=== PATIENT | male | born 1980 | race Caucasian/White ===

== ENCOUNTER 2021-07-31 22:10 | Inpatient (IN) | payer SELFPAY ==
--- NOTE | 2021-07-31 | ECG_ITS ---
Test Reason : HYPERTENSION Blood Pressure : / mmHG Vent. Rate : 085 BPM Atrial Rate : 085 BPM P-R Int : 122 ms QRS Dur : 098 ms QT Int : 396 ms P-R-T Axes : 060 064 066 degrees QTc Int : 471 ms Normal sinus rhythm Incomplete right bundle branch block Moderate voltage criteria for LVH, may be normal variant ( Sokolow-Liao , [place] product ) Borderline ECG No previous ECGs available Referred By: Generic ED Physician Electronically Signed By:Jimenez Blanchard
--- NOTE | ~2021-07-31 | CT_ITS ---
EXAMINATION: CT OF THE RIGHT FOREARM WITH CONTRAST CT OF THE RIGHT HAND WITH CONTRAST CLINICAL INFORMATION: Osteomyelitis . Tenosynovitis. COMPARISON: Radiographs dated 07/28/2017. TECHNIQUE: Multidetector volumetric imaging was obtained through the right forearm into the right hand following intravenous administration of 85 cc Omnipaque 350. Multiplanar reformatted images in coronal and sagittal orientations were submitted. This CT examination was performed using dose optimization techniques as appropriate, variously including the following: *Automated exposure control *Adjustment of mA and/or kV according to patient size (this includes techniques or standardized protocols for targeted exams where dose is matched to indication/reason for exam; i.e. extremities or head) *Use of iterative reconstruction technique DLP: 358 mGy-cm FINDINGS: Forearm: Soft tissue swelling and subcutaneous edema are most notable in the wrist extending into the hand. There is more mild soft tissue edema in the forearm. No focal peripherally enhancing fluid collections are identified in the forearm. Musculature is normal in appearance. No visual fascial collections or subcutaneous gas. No acute osseous findings in the forearm. Old nonunited right ulnar styloid fracture. Small osteophytes of the elbow joint. No elbow joint effusion. No CT findings of osteomyelitis in the forearm. Right hand: There is soft tissue swelling and subcutaneous edema in the right hand, most pronounced at the dorsal/lateral aspect of the hand near the base of the first metacarpal at the CMC joint. There is a subtle, peripherally enhancing focus in this region measuring 1.4 x 0.6 x 1.7 cm which is most concerning for an abscess. No additional fluid collections are identified. No appreciable tenosynovitis. Tendons are grossly intact. Intrinsic hand musculature is unremarkable. No acute osseous findings. Old nonunited ulnar styloid fracture is again noted. No CT findings of acute osteomyelitis. Joints appear well-preserved. CT/CT forearm RT w con IMPRESSION: Marked soft tissue swelling and subcutaneous edema in the wrist and hand, most pronounced dorsolaterally at the level of the first metacarpal base. There is a small 1.4 x 0.6 x 1.7 cm abscess/phlegmon is fat in this region. No evidence of tenosynovitis or osteomyelitis in the hand and forearm.
[2021-07-31 22:13] VITALS: BP 185/118; PULSE 92; RESP 18; TEMP 37.3; O2SAT 96; BMI 23.1
[2021-07-31 22:32] LABS: MANUAL DIFF FLAG NO
[2021-07-31 22:33] LABS: Basophils Absolute Auto 0.1 X10*3/uL (0.0-0.2); Basophils Percent Auto 0.5 % (0-2); Eosinophils Absolute Auto 0.3 X10*3/uL (0.0-0.4); Eosinophils Percent Auto 3.2 % (0-4); Hematocrit 39.4 % (42.0-52.0); Hemoglobin 12.6 g/dl (14.0-18.0); Imm Gran Abs Auto 0.02 X10*3/uL (0.00-0.03); Imm Gran Pct Auto 0.2 % (0.0-0.4); Lymphocytes Absolute Auto 1.6 X10*3/uL (1.2-4.9); Mean Corpuscular Hemoglobin 28.8 pg (27.0-33.0); Mean Platelet Volume 9.1 fL (9.4-12.4); Monocytes Absolute Auto 0.5 X10*3/uL (0.1-1.2); Monocytes Percent Auto 5.5 % (2-11); Neutrophils Absolute Auto 7.4 x10*3/uL (2.0-8.3); Neutrophils Percent Auto 74.6 % (45-73); Platelet Count 201 X10*3/uL (160-400); Red Blood Count 4.38 X10*6/uL (4.60-5.80); White Blood Count 9.9 X10*3/uL (4.8-10.8)
--- NOTE | 2021-07-31 22:50 | ED.WOUNDLAC ---
HPI - Wound/Laceration General Chief Complaint: Wound/Laceration Stated Complaint: spider bite rt hand, swollen Time Seen by Provider: 07/31/21 22:29 Source: patient Mode of arrival: ambulatory Limitations: no limitations History of Present Illness HPI narrative: 41-year-old male presents with right hand pain and swelling. Feels that he has a spider bite. Onset (ago): hour(s) (4) Extremity Location: right: hand Place: home Patient tetanus UTD: No Associated symptoms: pain Related Data Allergies Allergy/AdvReac Type Severity Reaction Status Date / Time No Known Allergies Allergy Verified 07/31/21 22:13 Review of Systems Review of Systems: Constitutional: No Fever, No Chills ENT/Mouth: No Ear Pain, No Hoarseness, No sore throat Eyes: No Eye Pain, No Swelling, No Redness, No Foreign Body Cardiovascular: No Chest Pain, No SOB Respiratory: No Cough, No Dyspnea Gastrointestinal: No Nausea, No Vomiting, No Diarrhea, No abdominal Pain Genitourinary: No Dysuria, No Hematuria Musculoskeletal: positive right hand pain, No Myalgias, positive right hand Swelling Skin: Positive right hand erythema, purulent drainage, No Skin lacerations, No rash Neuro: No Weakness, No Numbness, No Paresthesias, No Loss of Consciousness, No Dizziness, No Headache Psych: No Anxiety/Panic, No Depression Heme/Lymph: no easy bruising, no Lymphadenopathy Endocrine: No Polyuria, No Polydipsia PMFSH Past Medical History Attestation statement: The following information was validated with the patient. Source: old records reviewed Social History Social History Advance Directives: No Advance Directives Information Provided: No Physical Exam Vital Signs: Vital Signs: Last Vital Signs Temp 99.1 F 08/01/21 01:56 Pulse 66 08/01/21 01:56 Resp 14 08/01/21 01:56 BP 181/102 H 08/01/21 01:56 Pulse Ox 96 08/01/21 01:56 BMI result Body Mass Index 23.1 Appearance: Alert. Oriented X3. Moderate distress. Eyes: Pupils equal, round and reactive to light. ENT: Pharynx normal. Neck: Normal inspection. Neck supple. CVS: Normal heart rate and rhythm. Pulses normal. Respiratory: No respiratory distress. Breath sounds normal. Abdomen: Soft and nontender. Skin: Cellulitis to right hand. Skin warm and dry. Normal skin color. Normal skin turgor. Extremities: No lower extremity edema. Edema noted to the right upper extremity. Decreased range of motion secondary to swelling. Brisk capillary refill in equal pulses. Neuro: No motor deficit. No sensory deficit. Cranial nerves 2-12 intact Course Course Course Narrative: 41-year-old male presents with 4 hours of right hand pain, swelling, and purulent drainage. Patient is unable to bend his fingers. 23:02 based on the rapid progression of his swelling and erythema, will treat with Zosyn to cover for necrotizing fasciitis, vanco per ED protocol, fluid resuscitation at 2 L per ideal body weight. Patient is tall with thin build. Order for CT of hand and forearm to rule out osteomyelitis and tenosynovitis. Lactic and cultures are pending even though vital signs are stable and within normal limits. 00:52 CT scan indicates cellulitis with phlegmon abscess. No indication of osteo or tenosynovitis at this time. Plan of care is for admission. Discussion with hospitalist, plan is to admit for cellulitis. Consultations Consultation #1: Naye Time: 00:00 MDM - Wound/Laceration MDM Narrative Medical decision making narrative: Cellulitis, tenosynovitis, osteomyelitis Differential Diagnosis Differential diagnosis: Likely abscess Medical Records Attestation: I reviewed the patient's medical records. Lab Data Attestation: I reviewed the patient's lab results. Result diagrams: 07/31/21 22:27 07/31/21 22:27 Labs: Lab Results 07/31/21 07/31/21 07/31/21 Range/Units 22:27 22:27 23:06 WBC 9.9 (4.8-10.8) X10*3/uL RBC 4.38 L (4.60-5.80) X10*6/uL Hgb 12.6 L (14.0-18.0) g/dl Hct 39.4 L (42.0-52.0) % MCV 90.0 (80.0-98.0) fL MCH 28.8 (27.0-33.0) pg MCHC 32.0 (31.0-36.0) g/dl RDW 13.0 (11.0-16.0) % Plt Count 201 (160-400) X10*3/uL MPV 9.1 L (9.4-12.4) fL Immature Gran % (Auto) 0.2 (0.0-0.4) % Neut % (Auto) 74.6 H (45-73) % Lymph % (Auto) 16.0 L (20-40) % [place] % (Auto) 5.5 (2-11) % Eos % (Auto) 3.2 (0-4) % Baso % (Auto) 0.5 (0-2) % Lymph # (Auto) 1.6 (1.2-4.9) X10*3/uL [place] # (Auto) 0.5 (0.1-1.2) X10*3/uL Eos # (Auto) 0.3 (0.0-0.4) X10*3/uL Baso # (Auto) 0.1 (0.0-0.2) X10*3/uL Abs Immat Gran (auto) 0.02 (0.00-0.03) X10*3/uL Absolute Neuts (auto) 7.4 (2.0-8.3) x10*3/uL Absolute Nucleated RBC 0.000 (0.0-0.012) X10*3/uL Nucleated RBC % (auto) 0.0 (0.0-0.2) /100WBC ESR (0-15) MM/HR Sodium 141 (135-145) mmol/L Potassium 3.7 (3.3-5.1) mmol/L Chloride 105 (96-108) mmol/L Carbon Dioxide 30 H (22-29) mmol/L Anion Gap 10 L (12-20) BUN 23 H (9-16) mg/dL Creatinine 1.33 (0.5-1.4) mg/dL Estim Creat Clear Calc 88.5 Estimated GFR 60 Random Glucose 91 (60-115) mg/dL Lactic Acid 1.2 (0.5-2.0) mmol/L Calcium 9.1 (8.4-10.2) mg/dL Troponin I High Sens (<3.5-35.0) ng/L C-Reactive Protein (< or = 0.50) mg/dL COVID-19 (JANIA) (Negative) COVID-19 Clin Com 07/31/21 07/31/21 07/31/21 Range/Units 23:07 23:07 23:07 WBC (4.8-10.8) X10*3/uL RBC (4.60-5.80) X10*6/uL Hgb (14.0-18.0) g/dl Hct (42.0-52.0) % MCV (80.0-98.0) fL MCH (27.0-33.0) pg MCHC (31.0-36.0) g/dl RDW (11.0-16.0) % Plt Count (160-400) X10*3/uL MPV (9.4-12.4) fL Immature Gran % (Auto) (0.0-0.4) % Neut % (Auto) (45-73) % Lymph % (Auto) (20-40) % [place] % (Auto) (2-11) % Eos % (Auto) (0-4) % Baso % (Auto) (0-2) % Lymph # (Auto) (1.2-4.9) X10*3/uL [place] # (Auto) (0.1-1.2) X10*3/uL Eos # (Auto) (0.0-0.4) X10*3/uL Baso # (Auto) (0.0-0.2) X10*3/uL Abs Immat Gran (auto) (0.00-0.03) X10*3/uL Absolute Neuts (auto) (2.0-8.3) x10*3/uL Absolute Nucleated RBC (0.0-0.012) X10*3/uL Nucleated RBC % (auto) (0.0-0.2) /100WBC ESR 12 (0-15) MM/HR Sodium (135-145) mmol/L Potassium (3.3-5.1) mmol/L Chloride (96-108) mmol/L Carbon Dioxide (22-29) mmol/L Anion Gap (12-20) BUN (9-16) mg/dL Creatinine (0.5-1.4) mg/dL Estim Creat Clear Calc Estimated GFR Random Glucose (60-115) mg/dL Lactic Acid (0.5-2.0) mmol/L Calcium (8.4-10.2) mg/dL Troponin I High Sens 12.6 (<3.5-35.0) ng/L C-Reactive Protein 0.41 (< or = 0.50) mg/dL COVID-19 (JANIA) (Negative) COVID-19 Clin Com 07/31/21 Range/Units 23:08 WBC (4.8-10.8) X10*3/uL RBC (4.60-5.80) X10*6/uL Hgb (14.0-18.0) g/dl Hct (42.0-52.0) % MCV (80.0-98.0) fL MCH (27.0-33.0) pg MCHC (31.0-36.0) g/dl RDW (11.0-16.0) % Plt Count (160-400) X10*3/uL MPV (9.4-12.4) fL Immature Gran % (Auto) (0.0-0.4) % Neut % (Auto) (45-73) % Lymph % (Auto) (20-40) % [place] % (Auto) (2-11) % Eos % (Auto) (0-4) % Baso % (Auto) (0-2) % Lymph # (Auto) (1.2-4.9) X10*3/uL [place] # (Auto) (0.1-1.2) X10*3/uL Eos # (Auto) (0.0-0.4) X10*3/uL Baso # (Auto) (0.0-0.2) X10*3/uL Abs Immat Gran (auto) (0.00-0.03) X10*3/uL Absolute Neuts (auto) (2.0-8.3) x10*3/uL Absolute Nucleated RBC (0.0-0.012) X10*3/uL Nucleated RBC % (auto) (0.0-0.2) /100WBC ESR (0-15) MM/HR Sodium (135-145) mmol/L Potassium (3.3-5.1) mmol/L Chloride (96-108) mmol/L Carbon Dioxide (22-29) mmol/L Anion Gap (12-20) BUN (9-16) mg/dL Creatinine (0.5-1.4) mg/dL Estim Creat Clear Calc Estimated GFR Random Glucose (60-115) mg/dL Lactic Acid (0.5-2.0) mmol/L Calcium (8.4-10.2) mg/dL Troponin I High Sens (<3.5-35.0) ng/L C-Reactive Protein (< or = 0.50) mg/dL COVID-19 (JANIA) Negative (Negative) COVID-19 Clin Com See Note Imaging Data CT scan hand and forearm: Attestation: I personally reviewed and interpreted this imaging study as follows: Radiologist's impression: EXAMINATION: CT OF THE RIGHT FOREARM WITH CONTRAST CT OF THE RIGHT HAND WITH CONTRAST CLINICAL INFORMATION: Osteomyelitis . Tenosynovitis.? COMPARISON: Radiographs dated 07/28/2017.? TECHNIQUE: Multidetector volumetric imaging was obtained through the right forearm into the right hand following intravenous administration of 85 cc Omnipaque 350. Multiplanar reformatted images in coronal and sagittal orientations were submitted.? This CT examination was performed using dose optimization techniques as appropriate, variously including the following: *Automated exposure control *Adjustment of mA and/or kV according to patient size (this includes techniques or standardized protocols for targeted exams where dose is matched to indication/reason for exam; i.e. extremities or head) *Use of iterative reconstruction technique DLP: 358 mGy-cm FINDINGS: Forearm: Soft tissue swelling and subcutaneous edema are most notable in the wrist extending into the hand. There is more mild soft tissue edema in the forearm. No focal peripherally enhancing fluid collections are identified in the forearm. Musculature is normal in appearance. No visual fascial collections or subcutaneous gas. No acute osseous findings in the forearm. Old nonunited right ulnar styloid fracture. Small osteophytes of the elbow joint. No elbow joint effusion. No CT findings of osteomyelitis in the forearm. Right hand: There is soft tissue swelling and subcutaneous edema in the right hand, most pronounced at the dorsal/lateral aspect of the hand near the base of the first metacarpal at the CMC joint. There is a subtle, peripherally enhancing focus in this region measuring 1.4 x 0.6 x 1.7 cm which is most concerning for an abscess. No additional fluid collections are identified. No appreciable tenosynovitis. Tendons are grossly intact. Intrinsic hand musculature is unremarkable. No acute osseous findings. Old nonunited ulnar styloid fracture is again noted. No CT findings of acute osteomyelitis. Joints appear well-preserved. CT/CT hand RT w con IMPRESSION: Marked soft tissue swelling and subcutaneous edema in the wrist and hand, most pronounced dorsolaterally at the level of the first metacarpal base. There is a small 1.4 x 0.6 x 1.7 cm abscess/phlegmon is fat in this region. No evidence of tenosynovitis or osteomyelitis in the hand and forearm. ECG Data Attestation: I personally reviewed and interpreted this ECG as follows: ECG interpretation date: 07/31/21 ECG interpretation time: 22:16 Prior ECG tracings: not available for review Interpretation: Vent. rate 85 BPM TN interval 122 ms QRS duration 98 ms QT/QTc 396/471 ms P-R-T axes 60 64 66 Normal sinus rhythm Incomplete right bundle branch block Moderate voltage criteria for LVH, may be normal variant ( Sokolow-Liao , [place] product ) Borderline ECG No previous ECGs available Discharge Plan Discharge Clinical Impression: Cellulitis, Phlegmon Patient Disposition: Admitted As Inpatient
[2021-07-31 22:51] LABS: Anion Gap 10 (12-20); Blood Urea Nitrogen 23 mg/dL (9-16); Calcium 9.1 mg/dL (8.4-10.2); Carbon Dioxide 30 mmol/L (22-29); Chloride 105 mmol/L (96-108); Creatinine Clr Calc Pharmacy 88.5; Estimated Glomerular Filt Rate 60; Glucose Random 91 mg/dL (60-115); Potassium 3.7 mmol/L (3.3-5.1); Sodium 141 mmol/L (135-145)
[2021-07-31 23:14] VITALS: RESP 16
[2021-07-31] MEDS: Morphine Sulfate 4 MG/ML CARTRIDGE IVPUSH (23:14)
[2021-07-31] MEDS: Diphth,Pertus(ACell),Tet Adult 0.5 ML SYRINGE IM (23:20)
[2021-07-31 23:28] LABS: Lactic Acid 1.2 mmol/L (0.5-2.0)
[2021-07-31 23:28] LABS: COVID-19 Test Negative (Negative)
[2021-07-31 23:36] LABS: C Reactive Protein 0.41 mg/dL (< or = 0.50)
[2021-07-31 23:37] LABS: Troponin-I High Sensitivity 12.6 ng/L (<3.5-35.0)
[2021-07-31] MEDS: 0.9 % Sodium Chloride 1,000 ML 999 ML IVCONT (23:50)
[2021-08-01] VITALS (10 sets, daily range): BP systolic 163–199; BP diastolic 83–113; PULSE 64–90; RESP 14–18; TEMP 36.6–37.9; O2SAT 94–99; BMI 21.9
[2021-08-01] LABS: Erythrocyte Sedimentation Rate 12 MM/HR (0-15)
[2021-08-01] MEDS: iohexoL 350 MG/ML 100 ML INFUS..BTL 85 ML IV
[2021-08-01] MEDS: Morphine Sulfate 4 MG/ML CARTRIDGE IVPUSH ×3 (00:17→17:56)
[2021-08-01] MEDS: Piperacillin Sodium/Tazobactam 3.375 GM in 0.9 % Sodium Chloride 50 ML IV ×5 (00:20→23:52)
[2021-08-01] MEDS: vancomycin HCL 1,000 MG in 0.9 % Sodium Chloride 250 ML 270 MG IV ×3 (00:57→22:25)
[2021-08-01] MEDS: HYDROmorphone HCl 2 MG/ML VIAL IVPUSH (00:57)
[2021-08-01] MEDS: 0.9 % Sodium Chloride 1,000 ML 999 ML IVCONT (01:09)
--- NOTE | 2021-08-01 01:42 | PM.IMHP ---
History of Present Illness Date of Service: 07/31/21 Chief Complaint: hand swelling Matthieu is a 41-year-old male with no significant past medical history presents to the hospital with right hand pain and swelling. Patient reports that he feels like it was a spider bite, it started about 4 hours prior to presentation and it has expanded with severe pain and swelling of his right hand. Patient also reports redness that is moving up to the middle of his forearm. Patient denies any fever chills, has no chest pain, no shortness of breath, no abdominal pain nausea or vomiting, no diarrhea constipation, no urinary symptoms and no lower extremity edema. 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 Denies any trauma to the hand. On arrival to the ED patient hemodynamically stable with no significant abnormal vitals except an elevated blood pressure. Labs are significant for WBC count 9.9, hemoglobin of 12.6, BUN of 23 and creatinine of 1.23 with no previous for comparison COVID negative Hand CT shows marked soft tissue swelling and subcutaneous edema in the wrist and hand, there is a 1.4 by 1.7 cm abscess/phlegmon in the fat of this region. No evidence of tenosynovitis or osteomyelitis Review of Systems Review of Systems: Yes all other systems are reviewed and are negative [facility] Medical History (Updated 08/01/21 @ 06:56 by Chelle Yancey MD) PKD (polycystic kidney disease) Family History (Updated 08/01/21 @ 06:50 by Chelle Yancey MD) Other No family history of coronary artery disease Surgical History (Updated 08/01/21 @ 06:49 by Chelle Yancey MD) No pertinent past surgical history Social History (Updated 08/01/21 @ 06:50 by Chelle Yancey MD) Alcohol intake: current Use of substances other than those prescribed or required for medical reasons: No Advance Directives: No Advance Directives Information Provided: No Meds Allergies Allergy/AdvReac Type Severity Reaction Status Date / Time No Known Allergies Allergy Verified 07/31/21 22:13 Active Medications: Current Medications Pharmacy Consult (Consult Rx Perform Med Rec) 1 each MISCELLANE ONCE STA Stop: 07/31/21 22:59 Physical Exam Vital Signs and Narrative: Vital Signs: Last Vital Signs Temp 99.2 F 07/31/21 22:13 Pulse 92 07/31/21 22:13 Resp 16 07/31/21 23:14 BP 185/118 H 07/31/21 22:13 Pulse Ox 96 07/31/21 22:13 BMI result Body Mass Index 23.1 Const: General: cooperative and no acute distress Orientation/consciousness: patient oriented x3 Eyes: General: appearance normal, both eyes and all related structures Pupils: Equal, round and reactive pupils present Resp: Effort & Inspection: normal respiratory effort Auscultation: clear to auscultation bilaterally Cardio: Rate: regular rate Rhythm: regular rhythm GI: Palpation (GI): Soft to palpation Auscultation: normal bowel sounds Skin: Other: lesion in theright hand, with circular erythema at the base of the thumb, then extenson of this erythem to the mid forearm, significant edema, warmth and tenderness. please see images in the ED note Neuro: General: patient oriented x3 Cranial nerves: Yes Equal, round and reactive pupils present Cognition (Neuro): normal cognition Extrem: General: Yes no pedal edema Results Labs CBC and Chem 7: 07/31/21 22:27 07/31/21 22:27 Labs: Laboratory Results - last 24 hr 07/31/21 07/31/21 07/31/21 22:27 22:27 23:06 MCV 90.0 MCH 28.8 MCHC 32.0 RDW 13.0 Plt Count 201 MPV 9.1 L Immature Gran % (Auto) 0.2 Neut % (Auto) 74.6 H Lymph % (Auto) 16.0 L [place] % (Auto) 5.5 Eos % (Auto) 3.2 Baso % (Auto) 0.5 Lymph # (Auto) 1.6 [place] # (Auto) 0.5 Eos # (Auto) 0.3 Baso # (Auto) 0.1 Abs Immat Gran (auto) 0.02 Absolute Neuts (auto) 7.4 Absolute Nucleated RBC 0.000 Nucleated RBC % (auto) 0.0 ESR Anion Gap 10 L Estim Creat Clear Calc 88.5 Estimated GFR 60 Random Glucose 91 Lactic Acid 1.2 Calcium 9.1 C-Reactive Protein COVID-19 (JANIA) COVID-19 Clin Com 07/31/21 07/31/21 07/31/21 23:07 23:07 23:08 MCV MCH MCHC RDW Plt Count MPV Immature Gran % (Auto) Neut % (Auto) Lymph % (Auto) [place] % (Auto) Eos % (Auto) Baso % (Auto) Lymph # (Auto) [place] # (Auto) Eos # (Auto) Baso # (Auto) Abs Immat Gran (auto) Absolute Neuts (auto) Absolute Nucleated RBC Nucleated RBC % (auto) ESR 12 Anion Gap Estim Creat Clear Calc Estimated GFR Random Glucose Lactic Acid Calcium C-Reactive Protein 0.41 COVID-19 (JANIA) Negative COVID-19 Clin Com See Note Imaging Radiologist's Impressions: Impressions Forearm CT 08/01/21 00:00 IMPRESSION: Marked soft tissue swelling and subcutaneous edema in the wrist and hand, most pronounced dorsolaterally at the level of the first metacarpal base. There is a small 1.4 x 0.6 x 1.7 cm abscess/phlegmon is fat in this region. No evidence of tenosynovitis or osteomyelitis in the hand and forearm. Hand CT 08/01/21 00:00 IMPRESSION: Marked soft tissue swelling and subcutaneous edema in the wrist and hand, most pronounced dorsolaterally at the level of the first metacarpal base. There is a small 1.4 x 0.6 x 1.7 cm abscess/phlegmon is fat in this region. No evidence of tenosynovitis or osteomyelitis in the hand and forearm. Assessment and Plan (1) Phlegmon: Status: Acute (2) Cellulitis: Status: Acute Plan 41-year-old male with history of PKD presents to the hospital with right hand swelling, erythema, and pain found to have cellulitis as well as abscess/phlegmon # hand cellulitis - acute and extensive - will start with IV antibiotics - follow cultures # phlegmon/abscess at the location of the cellulitis - IV antibiotics - consult orthopedic surgery - follow cultures # PKD - creatinine of 1.23 with no baseline for comparison - monitor BMP DVT prophylaxis: SCDs in anticipation of possible surgical intervention to drain the abscess Quality Stroke Does the patient have a stroke diagnosis?: No VTE Prior VTE?: No VTE Risk Level:: Medical - moderate - high VTE Device Contraindication: Treatment Not Indicated VTE Drug Contraindication: N/A - Med Ordered
--- NOTE | 2021-08-01 05:52 | PC.NURSE ---
Pt sleeping, chest rise and fall observed, call light in reach, this RN continues to monitor.
--- NOTE | 2021-08-01 08:19 | PHA.MEDREC ---
Pharmacy Consult ? Medication Reconciliation Pharmacy has completed the medication reconciliation.
--- NOTE | 2021-08-01 10:09 | MHC.CM.PN ---
PT REPORTS HE LIVES ALONE AND IS INDEPENDENT WITH CARE PT DENIES USE OF DME OR HOME SERVICES PT DOES NOT HAVE A PCP PT REPORTS HIS MOTHER IS HIS HCP, COPY REQUESTED PT REPORTS HE BELIEVES HE DID APPLY FOR HEALTH INSURANCE THROUGH THE STATE REF[place]AL [place] [facility] [place] IF IT IS ACTIVE CURRENT DC PLAN IS HOME WITH NO SERVICES PT TO ARRANGE TRANSPORTATION
[2021-08-01] MEDS: ondansetron HCL 4 MG/2 ML VIAL IVPUSH (10:21)
[2021-08-01] MEDS: hydrALAZINE HCl 20 MG/ML VIAL 5 MG IVPUSH (10:22)
[2021-08-01 10:23] LABS: MANUAL DIFF FLAG NO
[2021-08-01 10:28] LABS: Basophils Absolute Auto 0.1 X10*3/uL (0.0-0.2); Basophils Percent Auto 0.6 % (0-2); Eosinophils Absolute Auto 0.4 X10*3/uL (0.0-0.4); Eosinophils Percent Auto 3.4 % (0-4); Hemoglobin 12.9 g/dl (14.0-18.0); Imm Gran Abs Auto 0.03 X10*3/uL (0.00-0.03); Imm Gran Pct Auto 0.3 % (0.0-0.4); Lymphocytes Percent Auto 16.8 % (20-40); Mean Corpuscular HGB Conc 31.5 g/dl (31.0-36.0); Mean Corpuscular Volume 89.1 fL (80.0-98.0); Mean Platelet Volume 9.6 fL (9.4-12.4); Monocytes Absolute Auto 0.6 X10*3/uL (0.1-1.2); Monocytes Percent Auto 5.4 % (2-11); Neutrophils Absolute Auto 8.6 x10*3/uL (2.0-8.3); Neutrophils Percent Auto 73.5 % (45-73); Platelet Count 221 X10*3/uL (160-400); Red Cell Distribution Width 13.1 % (11.0-16.0); White Blood Count 11.7 X10*3/uL (4.8-10.8)
[2021-08-01 10:40] LABS: Anion Gap 11 (12-20); Blood Urea Nitrogen 16 mg/dL (9-16); Calcium 8.7 mg/dL (8.4-10.2); Carbon Dioxide 27 mmol/L (22-29); Chloride 104 mmol/L (96-108); Creatinine Clr Calc Pharmacy 101.4; Estimated Glomerular Filt Rate > 60; Glucose Random 117 mg/dL (60-115); Potassium 3.9 mmol/L (3.3-5.1); Sodium 138 mmol/L (135-145)
[2021-08-01] MEDS: 0.9 % Sodium Chloride Flush 3 ML SYRINGE IVFLUSH ×3 (10:43→22:26)
--- NOTE | 2021-08-01 10:48 | PHA.PROG ---
Admission Date/Time: August 01, 2021 01:39 Indication: SKIN AND SKIN STRUCTURE Weight in k.915 kg Adjusted body weight in K.266 [place] body weight in Kg: Obesity Dosing Indication % IBW: Serum Creatinine - Last 168 Hours 07/31/21 08/01/21 22: 10:10 Creatinine 1.33 1.16 Estimated CrCl and GFR - Last 168 Hours 07/31/21 08/01/21 22: 10:10 Estim Creat Clear Calc 88.5 101.4 Estimated GFR 60 > 60 Vancomycin Loading Dose: 1000MG Current Vancomycin Dosing Regimen: 1000 MG Q12H Vancomycin Monitoring using AUC goal of 400 - 600 range with trough as surrogate marker: AUC 467; TROUGH 15.8 Date and Time for next Vancomycin Level to be drawn: 08/02@0900 Pharmacist Comments on Vancomycin Plan: Vancomycin dosing will take advantage of [employer] as a clinical decision support tool that uses Bayesian modeling to calculate individual patient's pharmacokinetic parameters and forecast the patient's drug concentration time course with the target goal AUC 24 range of 400 - 600 mg/L/hr.
--- NOTE | 2021-08-01 11:33 | HO.PM.IMPN ---
Subjective Subjective Date of Service: 08/01/21 Interval History: complaining of right hand pain refusing to take pain medications, wants to know when he will be discharged, denies fever, chills , noted to have significantly elevated systolic blood pressure 199 no other acute issues over night. Review of Systems Review of Systems: Yes all other systems are reviewed and are negative Physical Exam Vital Signs: Vital Signs: Last Vital Signs Temp 98.9 F 08/01/21 06:43 Pulse 64 08/01/21 06:43 Resp 16 08/01/21 06:43 BP 199/97 H 08/01/21 06:43 Pulse Ox 96 08/01/21 06:43 BMI result Body Mass Index 23.1 Const: Other: General awake alert x3, no acute distress. Neck supple no JVD. CVS regular rate rhythm, Respiratory lungs clear to auscultation, no respiratory distress Gastrointestinal abdomen soft, nontender, bowel sounds audible Extremities no edema. Neuro nonfocal right hand significantly swollen, erythema at base of thumb with small opening with mild drainage of pus, redness extending to dorsum of hand towards mid forearm, positive warmth and tenderness to palpation see Hand picture in ED note Objective Data Active Medications Acetaminophen (Acetaminophen 325 Mg Tablet) 650 mg PO Q6H PRN PRN Reason: Pain, Mild (Pain Scale 1-3) Piperacillin Sod/Tazobactam (Sod 3.375 gm/ Sodium Chloride) 50 mls @ 100 mls/hr IV Q6H [facility] Last Infusion: 08/01/21 09:52 Dose: 0 mls/hr Documented by: CLAIR Vancomycin HCl 1,000 mg/ (Sodium Chloride) 270 mls @ 270 mls/hr IV Q12H [facility] Morphine Sulfate (Morphine Sulfate 4 Mg/Ml Cartridge) 4 mg IVPUSH Q4H PRN; Protocol PRN Reason: Pain, Severe (Pain Scale 7-10) Last Admin: 08/01/21 10:21 Dose: 4 mg Documented by: CLAIR Ondansetron HCl (Ondansetron Hcl 4 Mg/2 Ml Vial) 4 mg IVPUSH Q8H PRN PRN Reason: Nausea and Vomiting Last Admin: 08/01/21 10:21 Dose: 4 mg Documented by: CLAIR Pharmacy Consult (Consult Rx Vancomycin Dosing) 1 each MISCELLANE DAILY PRN PRN Reason: Consult order Sodium Chloride (0.9 % Sodium Chloride Flush 3 Ml Syringe) 3 ml IVFLUSH QSHIFT [facility] Last Admin: 08/01/21 10:43 Dose: 3 ml Documented by: CLAIR Labs CBC & Chem 7: 08/01/21 10:10 08/01/21 10:10 Labs: Laboratory Results - last 24 hr 07/31/21 07/31/21 07/31/21 22:27 22:27 23:06 MCV 90.0 MCH 28.8 MCHC 32.0 RDW 13.0 Plt Count 201 MPV 9.1 L Immature Gran % (Auto) 0.2 Neut % (Auto) 74.6 H Lymph % (Auto) 16.0 L Barton % (Auto) 5.5 Eos % (Auto) 3.2 Baso % (Auto) 0.5 Lymph # (Auto) 1.6 Barton # (Auto) 0.5 Eos # (Auto) 0.3 Baso # (Auto) 0.1 Abs Immat Gran (auto) 0.02 Absolute Neuts (auto) 7.4 Absolute Nucleated RBC 0.000 Nucleated RBC % (auto) 0.0 ESR Anion Gap 10 L Estim Creat Clear Calc 88.5 Estimated GFR 60 Random Glucose 91 Lactic Acid 1.2 Calcium 9.1 C-Reactive Protein COVID-19 ([facility]) COVID-19 Clin Com 07/31/21 07/31/21 07/31/21 23:07 23:07 23:08 MCV MCH MCHC RDW Plt Count MPV Immature Gran % (Auto) Neut % (Auto) Lymph % (Auto) Barton % (Auto) Eos % (Auto) Baso % (Auto) Lymph # (Auto) Barton # (Auto) Eos # (Auto) Baso # (Auto) Abs Immat Gran (auto) Absolute Neuts (auto) Absolute Nucleated RBC Nucleated RBC % (auto) ESR 12 Anion Gap Estim Creat Clear Calc Estimated GFR Random Glucose Lactic Acid Calcium C-Reactive Protein 0.41 COVID-19 ([facility]) Negative COVID-19 Clin Com See Note 08/01/21 08/01/21 10:10 10:10 MCV 89.1 MCH 28.0 MCHC 31.5 RDW 13.1 Plt Count 221 MPV 9.6 Immature Gran % (Auto) 0.3 Neut % (Auto) 73.5 H Lymph % (Auto) 16.8 L Barton % (Auto) 5.4 Eos % (Auto) 3.4 Baso % (Auto) 0.6 Lymph # (Auto) 2.0 Barton # (Auto) 0.6 Eos # (Auto) 0.4 Baso # (Auto) 0.1 Abs Immat Gran (auto) 0.03 Absolute Neuts (auto) 8.6 H Absolute Nucleated RBC 0.000 Nucleated RBC % (auto) 0.0 ESR Anion Gap 11 L Estim Creat Clear Calc 101.4 Estimated GFR > 60 Random Glucose 117 H Lactic Acid Calcium 8.7 C-Reactive Protein COVID-19 ([facility]) COVID-19 Clin Com Assessment and Plan (1) Cellulitis: Status: Acute (2) Phlegmon: Status: Acute Plan 41-year-old male presents to the hospital with right hand swelling, erythema, and pain found to have cellulitis as well as abscess/phlegmon # right hand cellulitis extending to forearm with abscess/ phlegmon no evidence of sepsis extensive area of redness and abscess, question related to spider bite continue IV Zosyn and IV vancomycin day 1 follow blood cultures recommend to take pain medications await orthopedic consult for possible I&D # mild dehydration, creatinine 1.33 on admission improved to 1.66 GFR above 60 no evidence of kidney disease at present follow BMP # Elevated blood pressures with no prior history of hypertension question undiagnosed hypertension and also related to pain but since BP significantly elevated will treat with Norvasc and follow BP closely encouraged to take pain medication DVT prophylaxis:? SCDs in anticipation of possible surgical intervention to drain the abscess. Quality Stroke Does the patient have a stroke diagnosis?: No VTE Prior VTE?: No VTE Risk Level:: Medical - moderate - high VTE Device Contraindication: Treatment Not Indicated VTE Drug Contraindication: N/A - Med Ordered
[2021-08-01] MEDS: amLODIPine Besylate 5 MG TABLET PO (11:48)
--- NOTE | 2021-08-01 14:07 | PM.CNOR ---
History of Present Illness HPI Consult date: 08/01/21 Chief complaint: cellulitis Narrative: 41 yo male with 2 day history of what appears to be a spider bite around the base of the right thumb. He states the redness and pain progressed fast which prompted him to come to the ED. He denies IVDU. He was seen in ED and admitted to the medical service and orthopedics was consulted for ortho eval. Review of Systems Review of Systems: per hpi [facility] Past Medical History Medical History (Updated 08/01/21 @ 06:56 by Chelle Yancey MD) PKD (polycystic kidney disease) Family History Family History (Updated 08/01/21 @ 06:50 by Chelle Yancey MD) Other No family history of coronary artery disease Surgical History Surgical History (Updated 08/01/21 @ 06:49 by Chelle Yancey MD) No pertinent past surgical history Social History Social History (Updated 08/01/21 @ 06:50 by Chelle Yancey MD) Alcohol intake: current Use of substances other than those prescribed or required for medical reasons: No Advance Directives: No Advance Directives Information Provided: No service: No Current occupational status: employed Meds Allergies Allergy/AdvReac Type Severity Reaction Status Date / Time No Known Allergies Allergy Verified 07/31/21 22:13 Active Medications: Current Medications Acetaminophen (Acetaminophen 325 Mg Tablet) 650 mg PO Q6H PRN PRN Reason: Pain, Mild (Pain Scale 1-3) Piperacillin Sod/Tazobactam (Sod 3.375 gm/ Sodium Chloride) 50 mls @ 100 mls/hr IV Q6H [facility] Last Admin: 08/01/21 12:58 Dose: 100 mls/hr Documented by: Vancomycin HCl 1,000 mg/ (Sodium Chloride) 270 mls @ 270 mls/hr IV Q12H [facility] Last Admin: 08/01/21 11:51 Dose: 270 mls/hr Documented by: Morphine Sulfate (Morphine Sulfate 4 Mg/Ml Cartridge) 4 mg IVPUSH Q4H PRN; Protocol PRN Reason: Pain, Severe (Pain Scale 7-10) Last Admin: 08/01/21 10:21 Dose: 4 mg Documented by: Ondansetron HCl (Ondansetron Hcl 4 Mg/2 Ml Vial) 4 mg IVPUSH Q8H PRN PRN Reason: Nausea and Vomiting Last Admin: 08/01/21 10:21 Dose: 4 mg Documented by: Oxycodone HCl (Oxycodone Hcl Immed Release 5 Mg Tablet) 5 mg PO Q4H PRN PRN Reason: Pain, Moderate (Pain Scale 4-6 Pharmacy Consult (Consult Rx Vancomycin Dosing) 1 each MISCELLANE DAILY PRN PRN Reason: Consult order Sodium Chloride (0.9 % Sodium Chloride Flush 3 Ml Syringe) [facility] Last Admin: 08/01/21 10:43 Dose: 3 ml Documented by: Home Medications Medication Instructions Recorded Confirmed Last Taken Type No Known Home Meds 08/01/21 08/01/21 Unknown History Physical Exam Vital Signs: Vital Signs: Last Vital Signs Temp 98 F 08/01/21 11:47 Pulse 76 08/01/21 11:47 Resp 15 08/01/21 11:47 BP 186/94 H 08/01/21 11:47 Pulse Ox 94 08/01/21 11:47 BMI result Body Mass Index 23.1 Const: General: cooperative, healthy appearing, comfortable and no acute distress Extrem: Other: Right hand redness and swelling along the base of the thumb on the dorsum. There is some serousangenous weeping. No pus. He is able to make a fist and extend all digits. No pain with axial loading of the fingers or wrist. NVI. Results Labs Result Diagrams: 08/01/21 10:10 08/01/21 10:10 Labs: Abnormal lab results 07/31/21 07/31/21 08/01/21 Range/Units 22:27 22:27 10:10 WBC 11.7 H (4.8-10.8) X10*3/uL RBC 4.38 L (4.60-5.80) X10*6/uL Hgb 12.6 L 12.9 L (14.0-18.0) g/dl Hct 39.4 L 41.0 L (42.0-52.0) % MPV 9.1 L (9.4-12.4) fL Neut % (Auto) 74.6 H 73.5 H (45-73) % Lymph % (Auto) 16.0 L 16.8 L (20-40) % Absolute Neuts (auto) 8.6 H (2.0-8.3) x10*3/uL Carbon Dioxide 30 H (22-29) mmol/L Anion Gap 10 L (12-20) BUN 23 H (9-16) mg/dL Random Glucose (60-115) mg/dL 08/01/21 Range/Units 10:10 WBC (4.8-10.8) X10*3/uL RBC (4.60-5.80) X10*6/uL Hgb (14.0-18.0) g/dl Hct (42.0-52.0) % MPV (9.4-12.4) fL Neut % (Auto) (45-73) % Lymph % (Auto) (20-40) % Absolute Neuts (auto) (2.0-8.3) x10*3/uL Carbon Dioxide (22-29) mmol/L Anion Gap 11 L (12-20) BUN (9-16) mg/dL Random Glucose 117 H (60-115) mg/dL H & H 07/31/21 08/01/21 Range/Units 22:27 10:10 Hgb 12.6 L 12.9 L (14.0-18.0) g/dl Hct 39.4 L 41.0 L (42.0-52.0) % All other labs normal. Assessment and Plan (1) Cellulitis: Status: Acute Plan Spoke with Dr Mirza and the plan is to keep him NPO and speak with anesthesia to see if and when we can take him to OR today for I&D right hand. I explained this to the patient along with risk, benefits and alternatives. Risk including but not limited to ongoing pain, infection, stiffness, and injury to nerve and tissue on the hand. He does understand this and agrees to I&D right hand with Dr Mirza. Procedures Date of Service Date of Service: 08/01/21
[2021-08-01] MEDS: hydrALAZINE HCl 50 MG TABLET PO ×2 (17:53→22:26)
--- NOTE | 2021-08-01 19:08 | P.OP_ITS ---
Operative Note Operative Note Date of Service: 08/01/21 Narrative: Operative Note Narrative: Preop diagnosis: right dorsal radial hand abscess Postop diagnosis: Same Procedure: 1. I&D right dorsal radial hand abscess Surgeon: Radha Mirza MD Anesthesia: General Findings: thick yellow creamy purulent material, and yellow fibrinous exudate Implants: iodoform gauze drain Tourniquet time: 11 minutes EBL: 5.0 ml Specimen: purulent material sent for cultures and Gram stain x2 Drains: None Complications: None Disposition: Brought to the recovery room in stable condition Plan: admit back to floor for IV antibiotics. remove drain at dressing change tomorrow patient not happy, and eager to leave the hospital. I have encouraged him to stay the night for IV antibiotics. Discharge with oral antibiotics, consider wound care clinic, and follow-up early next week in our clinic Indications: The patient is a 41 year old man with a right dorsal radial hand/ wrist infection. Etiology unclear. . The risks and benefits of oper ative treatment, including but not limited to risk of damage to blood vessels, nerves, tendons, infection, recurrence, persistent pain or numbness, incomplete resolution of preoperative symptoms, or need for further surgery were discussed with the patient and they wished to proceed with surgery. Procedure: Once consent was obtained patient was brought back to the operating suite and placed in the operating table in a supine position. anesthesia was administered by the anesthesia team. A tourniquet was applied to the proximal aspect of the right upper extremity and the limb was prepped and draped in a standard surgical fashion. The limb was elevated and the tourniquet inflated to 250 mm of mercury for a total tourniquet time of Eleven minutes. a 2.5 cm longitudinal incision was made over the apex of the abscess over the dorsal radial aspect of his right hand / wrist. The incision was made through the skin to the subcutaneous tissues. A copious amount of thick yellow creamy purulent material was observed and cultured. We spread down through the subcutaneous layer , and a rongeur was used to remove some of the yellow fibrinous exudate. The wound was then copiously irrigated with normal saline. a single 4-0 nylon suture was placed to reapproximate the skin edges but allow for drainage. A strip of iodoform gauze was placed to facilitate drainage. At this point the tourniquet was deflated and hemostasis obtained with a brief period of local pressure. The wound was infiltrated with some 1% lidocaine with epinephrine for postop pain control and a sterile dressing was applied. The patient appears to have tolerated the procedure well and with no complications. All digits were well vascularized conclusion of the case.
--- NOTE | 2021-08-01 19:08 | MHC.SHP ---
Pre-Procedural Eval Section A Date of Service: 08/01/21 The patient is an INPATIENT: Yes Changes since office visit: No Cold of Flu in the past 2 weeks, No New Medical Problems, No Changes in Medication and No Patient answered all questions The History & Physical has been completed within 30 days and I have reviewed it.: No Section B Chief Complaint: right hand abscess Allergies: Allergies Allergy/AdvReac Type Severity Reaction Status Date / Time No Known Allergies Allergy Verified 07/31/21 22:13 Plan I have reviewed the history and physical and performed a pertinent physical examination on my patient. No changes have occurred unless specified.
--- NOTE | 2021-08-01 19:24 | PC.NURSE ---
transfered to OR via wheelchair at 185
--- NOTE | 2021-08-01 19:43 | P.CONAN_ITS ---
[facility] Active Problems Active Problems: All Active Problems (Updated 08/01/21 @ 06:56 by Chelle Yancey MD) Cellulitis (Acute) Phlegmon (Acute) Past Medical History Medical History (Updated 08/01/21 @ 06:56 by Chelle Yancey MD) PKD (polycystic kidney disease) Family History Family History (Updated 08/01/21 @ 06:50 by Chelle Yancey MD) Other No family history of coronary artery disease Family history of problems with anesthesia: No Surgical History Surgical History (Updated 08/01/21 @ 06:49 by Chelle Yancey MD) No pertinent past surgical history History of Problems with Anesthesia: No Social History Social History (Updated 08/01/21 @ 06:50 by Chelle Yancey MD) Alcohol intake: current Use of substances other than those prescribed or required for medical reasons: No Advance Directives: No Advance Directives Information Provided: No service: No Current occupational status: employed Meds Allergies Allergy/AdvReac Type Severity Reaction Status Date / Time No Known Allergies Allergy Verified 07/31/21 22:13 Active Medications: Current Medications Acetaminophen (Acetaminophen 325 Mg Tablet) 650 mg PO Q6H PRN PRN Reason: Pain, Mild (Pain Scale 1-3) Hydralazine HCl (Hydralazine Hcl 50 Mg Tablet) 50 mg PO TID [facility] Last Admin: 08/01/21 17:53 Dose: 50 mg Documented by: Piperacillin Sod/Tazobactam (Sod 3.375 gm/ Sodium Chloride) 50 mls @ 100 mls/hr IV Q6H [facility] Last Infusion: 08/01/21 17:59 Dose: Infused Documented by: Vancomycin HCl 1,000 mg/ (Sodium Chloride) 270 mls @ 270 mls/hr IV Q12H [facility] Last Infusion: 08/01/21 14:35 Dose: Infused Documented by: Morphine Sulfate (Morphine Sulfate 4 Mg/Ml Cartridge) 4 mg IVPUSH Q4H PRN; Protocol PRN Reason: Pain, Severe (Pain Scale 7-10) Last Admin: 08/01/21 17:56 Dose: 4 mg Documented by: Oxycodone HCl (Oxycodone Hcl Immed Release 5 Mg Tablet) 5 mg PO Q4H PRN PRN Reason: Pain, Moderate (Pain Scale 4-6 Pharmacy Consult (Consult Rx Vancomycin Dosing) 1 each MISCELLANE DAILY PRN PRN Reason: Consult order Sodium Chloride (0.9 % Sodium Chloride Flush 3 Ml Syringe) 3 ml IVFLUSH QSHIFT [facility] Last Admin: 08/01/21 17:30 Dose: 3 ml Documented by: Home Medications Medication Instructions Recorded Confirmed Last Taken Type No Known Home Meds 08/01/21 08/01/21 Unknown History Exam Exam Date and Time: August 01, 20211942 Height,Weight and Vital Signs: Height 6 ft 3 in Weight 83.915 kg Last Vital Signs Temp 100.2 F 08/01/21 16:00 Pulse 86 08/01/21 16:00 Resp 17 08/01/21 16:00 BP 194/96 H 08/01/21 16:00 Pulse Ox 98 08/01/21 16:00 Pertinent Lab Results Pertinent Lab Results: Laboratory Tests 07/31/21 07/31/21 07/31/21 22:27 22:27 23:06 WBC 9.9 RBC 4.38 L Hgb 12.6 L Hct 39.4 L MCV 90.0 MCH 28.8 MCHC 32.0 RDW 13.0 Plt Count 201 MPV 9.1 L Immature Gran % (Auto) 0.2 Neut % (Auto) 74.6 H Lymph % (Auto) 16.0 L Colbert % (Auto) 5.5 Eos % (Auto) 3.2 Baso % (Auto) 0.5 Lymph # (Auto) 1.6 Colbert # (Auto) 0.5 Eos # (Auto) 0.3 Baso # (Auto) 0.1 Abs Immat Gran (auto) 0.02 Absolute Neuts (auto) 7.4 Absolute Nucleated RBC 0.000 Nucleated RBC % (auto) 0.0 ESR Sodium 141 Potassium 3.7 Chloride 105 Carbon Dioxide 30 H Anion Gap 10 L BUN 23 H Creatinine 1.33 Estim Creat Clear Calc 88.5 Estimated GFR 60 Random Glucose 91 Lactic Acid 1.2 Calcium 9.1 Troponin I High Sens C-Reactive Protein COVID-19 ([facility]) COVID-19 Clin Com 07/31/21 07/31/21 07/31/21 23:07 23:07 23:07 WBC RBC Hgb Hct MCV MCH MCHC RDW Plt Count MPV Immature Gran % (Auto) Neut % (Auto) Lymph % (Auto) Colbert % (Auto) Eos % (Auto) Baso % (Auto) Lymph # (Auto) Colbert # (Auto) Eos # (Auto) Baso # (Auto) Abs Immat Gran (auto) Absolute Neuts (auto) Absolute Nucleated RBC Nucleated RBC % (auto) ESR 12 Sodium Potassium Chloride Carbon Dioxide Anion Gap BUN Creatinine Estim Creat Clear Calc Estimated GFR Random Glucose Lactic Acid Calcium Troponin I High Sens 12.6 C-Reactive Protein 0.41 COVID-19 ([facility]) COVID-19 Clin Com 07/31/21 08/01/21 08/01/21 23:08 10:10 10:10 WBC 11.7 H RBC 4.60 Hgb 12.9 L Hct 41.0 L MCV 89.1 MCH 28.0 MCHC 31.5 RDW 13.1 Plt Count 221 MPV 9.6 Immature Gran % (Auto) 0.3 Neut % (Auto) 73.5 H Lymph % (Auto) 16.8 L Colbert % (Auto) 5.4 Eos % (Auto) 3.4 Baso % (Auto) 0.6 Lymph # (Auto) 2.0 Colbert # (Auto) 0.6 Eos # (Auto) 0.4 Baso # (Auto) 0.1 Abs Immat Gran (auto) 0.03 Absolute Neuts (auto) 8.6 H Absolute Nucleated RBC 0.000 Nucleated RBC % (auto) 0.0 ESR Sodium 138 Potassium 3.9 Chloride 104 Carbon Dioxide 27 Anion Gap 11 L BUN 16 Creatinine 1.16 Estim Creat Clear Calc 101.4 Estimated GFR > 60 Random Glucose 117 H Lactic Acid Calcium 8.7 Troponin I High Sens C-Reactive Protein COVID-19 ([facility]) Negative COVID-19 Clin Com See Note Airway Mallampati Class: II TM Dist: >3cm Neck ROM: Full Assessment and Plan Assessment Anesthesia Assessment: Anesthesia Plan Discussed, Smoking Cess. Discussed and Chart Reviewed Final Anesthetic Review Family History of Problems with Anesthesia: No History of Problems with Anesthesia: No NPO: Yes ASA Class: II and Emergency Final Preanesthetic Review: No Changes in Pt Med Stat, Meds/Allgs Chart Reviewed, Consent Obtained/Reviewed and Anes Risks/Benef Reviewed Patient Risk: Intermediate Procedure Risk: Low Anesthetic Plan Anesthetic Plan: GA Disposition: Standard PACU
[2021-08-01] MEDS: hydrALAZINE HCl 20 MG/ML VIAL 10 MG IVPUSH (20:24)
[2021-08-02 03:50] VITALS: BP 160/98; PULSE 104; RESP 18; TEMP 36.6; O2SAT 95
[2021-08-02] MEDS: Piperacillin Sodium/Tazobactam 3.375 GM in 0.9 % Sodium Chloride 50 ML IV ×3 (05:52→17:21)
[2021-08-02 08:00] VITALS: PULSE 90; RESP 20; TEMP 37.2; O2SAT 95
[2021-08-02 08:32] VITALS: RESP 18
[2021-08-02] MEDS: hydrALAZINE HCl 50 MG TABLET PO ×2 (08:32→16:27)
[2021-08-02] MEDS: 0.9 % Sodium Chloride Flush 3 ML SYRINGE IVFLUSH ×2 (08:32→16:28)
[2021-08-02] MEDS: Morphine Sulfate 4 MG/ML CARTRIDGE IVPUSH ×3 (08:32→17:20)
[2021-08-02] MEDS: Acetaminophen 325 MG TABLET 650 MG PO ×2 (08:43→16:28)
[2021-08-02] MEDS: oxyCODONE HCl Immed Release 5 MG TABLET PO ×2 (08:43→16:28)
[2021-08-02 09:23] VITALS: BP 172/98
[2021-08-02 09:44] LABS: Anion Gap 14 (12-20); Blood Urea Nitrogen 19 mg/dL (9-16); Calcium 8.8 mg/dL (8.4-10.2); Carbon Dioxide 24 mmol/L (22-29); Chloride 104 mmol/L (96-108); Estimated Glomerular Filt Rate > 60; Glucose Random 209 mg/dL (60-115); Potassium 3.7 mmol/L (3.3-5.1); Sodium 138 mmol/L (135-145)
[2021-08-02 09:54] LABS: Vancomycin Trough 7.9 mcg/mL (10.0-20.0)
--- NOTE | 2021-08-02 10:12 | HE.PHANOTE ---
RE [facility] Patient trough is 7.9. Per [facility], it would take roughly 4 days to achieve auc >400. Increasing dose to 1250mg q12h gives a suspected AUC of 553, trough of 17, with AUC>400 after one more dose. Random trough scheduled for 08/03 @0900. Thanks Dipak
--- NOTE | 2021-08-02 10:37 | P.PNOP_ITS ---
Subjective Subjective Date of Service: 08/02/21 Interval history: POD 1 s/ I&D Right hand has pain but asleep in bed feels it has improved slightly Physical Exam Vital Signs: Vital Signs: Last Vital Signs Temp 98.9 F 08/02/21 08:00 Pulse 90 08/02/21 08:00 Resp 18 08/02/21 08:32 BP 172/98 H 08/02/21 09:23 Pulse Ox 95 08/02/21 08:00 BMI result Body Mass Index 21.9 Extrem: Other: Drain intact, there continues to be redness, no drainage. he is able to make a full fist and extend all fingers. Procedures Date of Service Date of Service: 08/02/21 Progress Note: A&P Assessment and plan (1) Cellulitis: Status: Acute Plan packing pulled continue dry dressings and iv abx Fall Risk Details Current Medications: Current Medications Acetaminophen (Acetaminophen 325 Mg Tablet) 650 mg PO Q6H PRN PRN Reason: Pain, Mild (Pain Scale 1-3) Last Admin: 08/02/21 08:43 Dose: 650 mg Documented by: Amlodipine Besylate (Amlodipine Besylate 5 Mg Tablet) 5 mg PO DAILY [facility]; Protocol Hydralazine HCl (Hydralazine Hcl 50 Mg Tablet) 50 mg PO TID [facility] Last Admin: 08/02/21 08:32 Dose: 50 mg Documented by: Piperacillin Sod/Tazobactam (Sod 3.375 gm/ Sodium Chloride) 50 mls @ 100 mls/hr IV Q6H [facility] Last Infusion: 08/02/21 06:38 Dose: Infused Documented by: Vancomycin HCl 1,250 mg/ (Sodium Chloride) 250 mls @ 166.667 mls/hr IV Q12H [facility] Morphine Sulfate (Morphine Sulfate 4 Mg/Ml Cartridge) 4 mg IVPUSH Q4H PRN; Protocol PRN Reason: Pain, Severe (Pain Scale 7-10) Last Admin: 08/02/21 08:32 Dose: 4 mg Documented by: Oxycodone HCl (Oxycodone Hcl Immed Release 5 Mg Tablet) 5 mg PO Q4H PRN PRN Reason: Pain, Moderate (Pain Scale 4-6 Last Admin: 08/02/21 08:43 Dose: 5 mg Documented by: Pharmacy Consult (Consult Rx Vancomycin Dosing) 1 each MISCELLANE DAILY PRN PRN Reason: Consult order Sodium Chloride (0.9 % Sodium Chloride Flush 3 Ml Syringe) 3 ml IVFLUSH QSHIFT [facility] Last Admin: 08/02/21 08:32 Dose: 3 ml Documented by: Time Spent With Patient Time: Total time spent is greater than 50% in coordination of care (as documented) at patient's floor/unit and/or counseling patient: Quality Stroke Does the patient have a stroke diagnosis?: No VTE Prior VTE?: No VTE Risk Level:: Medical - moderate - high VTE Device Contraindication: Treatment Not Indicated VTE Drug Contraindication: N/A - Med Ordered
[2021-08-02] MEDS: vancomycin HCL 1,250 MG in 0.9 % Sodium Chloride 250 ML 166.67 MG IV (11:22)
[2021-08-02] MEDS: amLODIPine Besylate 5 MG TABLET PO (11:22)
[2021-08-02 16:00] VITALS: BP 178/98
--- NOTE | 2021-08-02 16:30 | P.PNIM_ITS ---
Subjective Subjective Date of Service: 08/02/21 Interval History: right hand cellulitis?/abcess Review of Systems Status post I&D yesterday, Still has erythema and pain Uncontrolled hypertension Physical Exam Vital Signs: Vital Signs: Last Vital Signs Temp 98.9 F 08/02/21 08:00 Pulse 90 08/02/21 08:00 Resp 18 08/02/21 08:32 BP 178/98 H 08/02/21 16:00 Pulse Ox 95 08/02/21 08:00 BMI result Body Mass Index 21.9 Appearance: Alert.? Oriented X3.? not in distress.? Eyes: Pupils equal, round and reactive to light.? Sclera nonicteric.? ENT: Pharynx normal.? Moist mucous membranes. cvs: rrr, [id number] . res: clear to auscultation ,no rhonchii or wheezing abd: no rebound or guarding ,nt, bs present. ext pulses present , no cyanosis right hand -pain /erythema/swelling still present. neuro: axo3 , nonfocal. Objective Data Active Medications Acetaminophen (Acetaminophen 325 Mg Tablet) 650 mg PO Q6H PRN PRN Reason: Pain, Mild (Pain Scale 1-3) Last Admin: 08/02/21 08:43 Dose: 650 mg Documented by: [email or web address] Amlodipine Besylate (Amlodipine Besylate 5 Mg Tablet) 5 mg PO DAILY [facility]; Protocol Last Admin: 08/02/21 11:22 Dose: 5 mg Documented by: [email or web address] Hydralazine HCl (Hydralazine Hcl 50 Mg Tablet) 50 mg PO TID [facility] Last Admin: 08/02/21 08:32 Dose: 50 mg Documented by: [email or web address] Piperacillin Sod/Tazobactam (Sod 3.375 gm/ Sodium Chloride) 50 mls @ 100 mls/hr IV Q6H [facility] Last Infusion: 08/02/21 13:35 Dose: 0 mls/hr Documented by: [email or web address] Vancomycin HCl 1,250 mg/ (Sodium Chloride) 250 mls @ 166.667 mls/hr IV Q12H [facility] Last Infusion: 08/02/21 12:58 Dose: 0 mls/hr Documented by: COTEMA Morphine Sulfate (Morphine Sulfate 4 Mg/Ml Cartridge) 4 mg IVPUSH Q4H PRN; Protocol PRN Reason: Pain, Severe (Pain Scale 7-10) Last Admin: 08/02/21 08:32 Dose: 4 mg Documented by: FRANCIE Oxycodone HCl (Oxycodone Hcl Immed Release 5 Mg Tablet) 5 mg PO Q4H PRN PRN Reason: Pain, Moderate (Pain Scale 4-6 Last Admin: 08/02/21 08:43 Dose: 5 mg Documented by: FRANCIE Pharmacy Consult (Consult Rx Vancomycin Dosing) 1 each MISCELLANE DAILY PRN PRN Reason: Consult order Sodium Chloride (0.9 % Sodium Chloride Flush 3 Ml Syringe) 3 ml IVFLUSH QSHIFT [facility] Last Admin: 08/02/21 08:32 Dose: 3 ml Documented by: FRANCIE Labs CBC & Chem 7: 08/01/21 10:10 08/02/21 09:21 Labs: Laboratory Results - last 24 hr 08/02/21 08/02/21 09:20 09:21 Anion Gap 14 Estim Creat Clear Calc 86.0 Estimated GFR > 60 Random Glucose 209 H D Calcium 8.8 Vancomycin Trough 7.9 L Microbiology Microbiology Results: Microbiology 08/01/21 19:51 Gram Stain - Final Hand Right Routine Culture - Preliminary Culture in progress. 08/01/21 19:50 Gram Stain - Final Hand Right Routine Culture - Preliminary Culture in progress. 08/01/21 00:13 Blood Culture - Preliminary Blood - Venous No growth after 24 hours. 08/01/21 00:13 Blood Culture - Preliminary Blood - Venous No growth after 24 hours. Assessment and Plan (1) Cellulitis: Status: Acute (2) Phlegmon: Status: Acute Plan 41-year-old male? presents to the hospital with right hand swelling, erythema, and pain found to have cellulitis as well as abscess/phlegmon 1. right hand cellulitis extending to forearm with abscess/ phlegmon no evidence of sepsis ?? extensive area of redness and abscess, question related to spider bite ?? continue IV? Zosyn and IV vancomycin day2,s/p I&d Yesterday vanco : 7.9, vanco adjusted. blood cultures neg@24hrs, wound cultures pending ?? recommend to take pain medications await orthopedic consult for possible I&D 2. mild dehydration, creatinine 1.3,GFR above 60 no evidence of kidney disease at present follow BMP gentle hydration 3. Elevated blood pressures with no prior history of hypertension ?? question undiagnosed hypertension? and also related to pain (encouraged to ask for pain medication) DVT prophylaxis:? SCDs Patient has severe cellulitis, on cultures pending, as well as blood culture also need to negative 48 hours, Ortho and ID-recommended continue IV antibiotics due to less improvement, uncontrolled blood pressure . Quality Stroke Does the patient have a stroke diagnosis?: No VTE Prior VTE?: No VTE Risk Level:: Medical - moderate - high VTE Device Contraindication: Treatment Not Indicated VTE Drug Contraindication: N/A - Med Ordered
[2021-08-02 17:20] VITALS: RESP 18
[2021-08-02] MEDS: amLODIPine Besylate 2.5 MG TABLET PO (17:21)
--- NOTE | 2021-08-02 18:28 | P.DS_ITS ---
DS: Providers Provider Date of Service: 08/02/21 Date of admission: 08/01/21 01:39 Date of discharge: 08/02/21 Primary care physician: None Physician Consults: 08/01/21 06:48 Consult to Orthopedics Routine Consulting Provider: Whitley Harrison Reason for consultation: Hand abscess 08/02/21 08:55 Consult to Infectious Diseases Routine Consulting Provider: Laquita Willis Reason for consultation: cellulitis Has provider been notified: No DS: Diagnosis Discharge Diagnosis (1) Cellulitis: Status: Acute (2) Phlegmon: Status: Acute DS: Summary Hospital Course Hospital Course: 41-year-old male with no significant past medical history presents to the hospital with right hand pain and swelling.? Patient reports that he feels like it was a spider bite, it started about 4 hours prior to presentation and it has expanded with severe pain and swelling of his right hand.? Patient also reports redness that is moving up to the middle of his forearm. Patient denies any fever chills, has no chest pain, no shortness of breath, no abdominal pain nausea or vomiting, no diarrhea constipation, no urinary symptoms and no lower extremity edema.? 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 Denies any trauma to the hand.? On arrival to the ED patient hemodynamically stable with no significant abnormal vitals except an elevated blood pressure.? Labs are significant for WBC count 9.9, hemoglobin of 12.6, BUN of 23 and creatinine of 1.23 with no previous for comparison COVID negative Hand CT shows marked soft tissue swelling and subcutaneous edema in the wrist and hand, there is a 1.4 by 1.7 cm abscess/phlegmon in the fat of this region.? No evidence of tenosynovitis or osteomyelitis. Hospital course: 41-year-old male? presents to the hospital with right hand swelling, erythema, and pain found to have cellulitis as well as abscess/phlegmon 1. right hand cellulitis extending to forearm with abscess/ phlegmon no evidence of sepsis ?started on IV antibiotic and I&D was done by surgery: Subsequently her hand swelling and erythema is slightly better than before, blood cultures are negative at 24 hour and wound cultures pending. Patient decided to leave against medical advice risk of leaving against medical advice was discussed in the detail-including worsening of cellulitis, limb loss, sepsis and bacteremia including -he understand he still wants to leave he says he has to go to his son at home . He was also requested to go to nearest emergency room for seeking attention for hand cellulitis. 2. mild dehydration, creatinine 1.3,GFR above 60 no evidence of kidney disease at present follow BMP with PCP outpatient. Encouraged gentle hydration 3. Elevated blood pressures with no prior history of hypertension: Blood pressure medication was started during this admission -prescription for blood pressure medications sent to the pharmacy. Above management discussed with patient in detail length. 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 Time Spent with Patient Time attestation: Total time spent providing and/or coordinating discharge services: Discharge coordination time: Greater than 30 minutes Quality: Stroke Does the patient have a stroke diagnosis?: No Physical Exam Vital Signs: Vital Signs: Last Vital Signs Temp 98.9 F 08/02/21 08:00 Pulse 90 08/02/21 08:00 Resp 18 08/02/21 17:20 BP 178/98 H 08/02/21 16:00 Pulse Ox 95 08/02/21 08:00 BMI result Body Mass Index 21.9 Refused physical exam when he left, Physical exam from this morning:. Appearance: Alert.? Oriented X3.? not in distress.? Eyes: Pupils equal, round and reactive to light.? Sclera nonicteric.? ENT: Pharynx normal.? Moist mucous membranes. cvs: rrr, [id number] . res: clear to auscultation ,no rhonchii or wheezing abd: no rebound or guarding ,nt, bs present. ext pulses present , no cyanosis right hand -pain /erythema/swelling still present. neuro: axo3 , nonfocal. DS: Data Data Completed and Pending Labs on day of discharge: Laboratory Results - last 24 hr 08/02/21 08/02/21 09:20 09:21 Sodium 138 Potassium 3.7 Chloride 104 Carbon Dioxide 24 Anion Gap 14 BUN 19 H Creatinine 1.30 Estim Creat Clear Calc 86.0 Estimated GFR > 60 Random Glucose 209 H D Calcium 8.8 Vancomycin Trough 7.9 L Preliminary micro results at discharge 08/01/21 19:51 Routine Culture - Preliminary Hand Right Culture in progress. 08/01/21 19:50 Routine Culture - Preliminary Hand Right Culture in progress. 08/01/21 00:13 Blood Culture - Preliminary Blood - Venous No growth after 24 hours. 08/01/21 00:13 Blood Culture - Preliminary Blood - Venous No growth after 24 hours. Additional Comments Additional comments: CT/CT hand RT w con IMPRESSION: Marked soft tissue swelling and subcutaneous edema in the wrist and hand, most pronounced dorsolaterally at the level of the first metacarpal base. There is a small 1.4 x 0.6 x 1.7 cm abscess/phlegmon is fat in this region. No evidence of tenosynovitis or osteomyelitis in the hand and forearm. Discharge Plan Discharge Patient Disposition: Left Against Medical Advice Discharge Diagnosis: Right hand cellulitis, phlegmon status post I&D Referrals: Physician,None [Primary Care Provider] - 1 Week Discharge Medications: New doxycycline hyclate 100 mg capsule 100 mg PO BID Qty: 14 0RF amlodipine 2.5 mg Tablet 7.5 mg PO DAILY Qty: 90 0RF Protocol: Hold for SBP< HOLD for SBP < : 90 hydralazine 50 mg Tablet 50 mg PO TID Qty: 90 0RF amoxicillin-pot clavulanate 875-125 mg Tablet 875 mg PO Q12H Qty: 14 0RF Discharge Orders: Discharge Order (Routine); Ordered 08/02/21 Ordered By: Anna Garcia Diet: advance to usual diet Activity on Discharge: As tolerated Care Plan Goals: Patient left against medical advice Health Concerns: As above. Plan of Treatment: As above. Assessment: As above.
== END 2021-08-02 18:38 | disposition left against medical advice (07) | DRG 603 ==
LOC: HO.ED 08-01 02:28 → HO.EDOVER 08-01 02:32 → HO.S3 08-01 16:45
PROVIDERS: Hospitalist; Nurse Practitioner Family; Orthopaedic Surgery; Admitting Provider Internal Medicine; Emergency Provider Emergency Medicine; Visit Provider Internal Medicine
PROC: 0J9J0ZZ Drainage of Right Hand Subcutaneous Tissue and Fascia, Open Approach (ICD-10-PCS; principal; 2021-08-01 19:00)
DX: L02.511 Cutaneous abscess of right hand (principal); Q61.3 Polycystic kidney, unspecified; L03.113 Cellulitis of right upper limb; E86.0 Dehydration; F17.210 Nicotine dependence, cigarettes, uncomplicated; Z71.6 Tobacco abuse counseling; Z20.822 Contact with and (suspected) exposure to COVID-19; Z79.899 Other long term (current) drug therapy
CPT/HCPCS: 36415; 73201; 80048; 80202; 83605; 84484; 85025; 85652; 86140; 87040; 87071; 87077; 87186; 87205; 87635; 90471; 90715; 93005; 96361; 96374; 96375; 99285; J1100; J1170; J2250; J2270; J2405; J2543; J3010; J3370; Q9967